=== PATIENT | female | born 1990 | race Caucasian/White ===

== ENCOUNTER 2022-04-27 09:51 | Emergency (ER) | payer OTHER, SELFPAY ==
[2022-04-27 10:27] VITALS: BP 134/93; PULSE 94; RESP 16; TEMP 36.9; O2SAT 100
--- NOTE | 2022-04-27 10:28 | ED.URI ---
HPI - URI/Sore Throat General Chief Complaint: Upper Respiratory Infection Stated Complaint: COUGH/COLD/CHEST PAIN/FEVER Time Seen by Provider: 04/27/22 10:34 Source: patient and RN notes reviewed Mode of arrival: ambulatory Limitations: no limitations History of Present Illness HPI Narrative: 21-year-old female presents concern for 1 week history of sinus congestion, drainage, pressure, cough. Reports her cough has turned productive. She reports fever, fatigue and malaise. She denies known sick contacts. Reports she took a COVID test at home that was negative. She denies shortness of breath. MD elicited complaint: cough, rhinorrhea and nasal congestion Related Data Home Medications Medication Instructions Recorded Confirmed alprazolam 0.25 mg tablet 0.25 mg PO DAILY 04/15/21 04/27/22 Allergies Allergy/AdvReac Type Severity Reaction Status Date / Time bupropion Allergy Unknown unknown Verified 04/27/22 10:26 Sulfa (Sulfonamide Allergy Unknown unknown Verified 04/27/22 10:26 Antibiotics) BUPROPION HCL Allergy Severe SEIZURE Uncoded 04/27/22 10:26 Review of Systems Review of Systems: CONSTITUTIONAL: Reports malaise and fever EYES: Denies visual changes, redness, or discharge. ENT: Reports rhinorrhea, congestion, sinus pain, otalgia CARDIOVASCULAR: Denies chest pain, palpitations, or edema. RESPIRATORY: Reports cough. Denies dyspnea. GASTROINTESTINAL: Denies abdominal pain, nausea, vomiting, diarrhea SKIN: Denies rash or itching. MUSCULOSKELETAL: Denies myalgia. NEUROLOGIC: Denies headache. All systems reviewed & are unremarkable except as noted in HPI and below [facility] Surgical History Surgical History (Updated 04/15/21 @ 10:37 by Dianna Sandra) History of appendectomy History of breast augmentation History of tubal ligation Family History Family History (Updated 04/15/21 @ 10:37 by Dianna Sandra) Father Hypertension Social History Social History Smoking status: Never smoker Alcohol intake: current Comments At time of signature, agree with nursing past medical, surgical, social and family history. There is no relevant family history pertinent to the presenting complaint Exam Narrative: GENERAL: Nontoxic appearing and in no acute distress. HEAD: Normocephalic EYES: PERRLA, conjunctivae clear ENT: Nares clear, turbinates edematous and erythematous, yellow discharge. Mucous membranes moist. TM pearly weeks with dull light reflex bilaterally; no tragal tenderness. Oropharynx not erythematous without lesions. Tonsils not enlarged and without exudate, no drooling, no hoarseness, no trismus, uvula midline. NECK: Supple. No lymphadenopathy CHEST: Clear to auscultation, breath sounds equal. No wheezing, rhonchi, rales, or stridor. No respiratory distress, speaks in full sentences. Wet cough noted HEART: Regular rate and rhythm. No murmur heard. SKIN: Warm, dry, no rash. NEURO: Alert and oriented x3. PSYCH: Normal mood and affect Course Course Emergency Course: Patient is aware of diagnosis, understands and agrees to treatment plan. Anticipatory guidance given. Patient agrees to follow-up as directed and is aware of reasons to seek care at the emergency department. Portions of this record may have been created with voice recognition software Level of Care: Express Care Visit Vital Signs Vital signs: Reviewed. MDM - URI/Sore Throat MDM Narrative Medical decision making narrative: Differential diagnosis considered: Glynn virus, strep pharyngitis, allergic rhinitis, upper respiratory tract infection, sinusitis, rhinosinusitis, nasopharyngitis. viral pharyngitis, otitis media, otitis externa, pneumonia, bronchitis, viral cough syndrome, viral syndrome, and influenza. Exam findings show no acute concerns or changes; patient is non-toxic appearing and is in no distress. Patient is appropriate for outpatient treatment and follow-up. Lab Data Attestation: I reviewed the patient's lab r
== END 2022-04-27 10:50 | disposition home or self-care (01) ==
PROVIDERS: Emergency Provider Nurse Practitioner; PCP Family Medicine
DX: J32.9 Chronic sinusitis, unspecified (principal); J40 Bronchitis, not specified as acute or chronic; F41.9 Anxiety disorder, unspecified
CPT/HCPCS: 99213; G0463

== ENCOUNTER 2022-07-08 13:57 | Emergency (ER) | payer OTHER, SELFPAY ==
[2022-07-08 14:50] VITALS: BP 154/87; PULSE 115; RESP 16; TEMP 37.3; O2SAT 100
--- NOTE | 2022-07-08 15:12 | ED.URI ---
HPI - URI/Sore Throat General Chief Complaint: Upper Respiratory Infection Stated Complaint: COUGH Time Seen by Provider: 07/08/22 15:12 Source: patient, RN notes reviewed and old records reviewed Mode of arrival: ambulatory Limitations: no limitations History of Present Illness HPI Narrative: 31-year-old female presents to the [facility] with complaints of generalized not feeling well since , developed Thursday. No treatment prior to arrival MD elicited complaint: cough Related Data Home Medications Medication Instructions Recorded Confirmed alprazolam 0.25 mg tablet 0.25 mg PO DAILY 04/15/21 07/08/22 Allergies Allergy/AdvReac Type Severity Reaction Status Date / Time bupropion Allergy Unknown unknown Verified 07/08/22 15:13 Sulfa (Sulfonamide Allergy Unknown unknown Verified 07/08/22 15:13 Antibiotics) BUPROPION HCL Allergy Severe SEIZURE Uncoded 07/08/22 15:13 Review of Systems Review of Systems: All systems reviewed & are unremarkable except as noted in HPI and below Constitutional: Constitutional: Reports no additional constitutional complaints, Denies chills and Denies fever(s) Eyes: Eyes: Reports no additional eye complaints ENT: Reports system reviewed and no additional complaints, except as documented Cardiovascular: Cardiovascular: Reports no additional cardiovascular complaints Respiratory: Respiratory: Reports as per HPI and Reports cough Gastrointestinal: Gastrointestinal: Reports no additional gastrointestinal complaints Musculoskeletal: Musculoskeletal: Reports no additional musculoskeletal complaints Integumentary/Breasts: Skin/Breast: Reports system reviewed and no additional complaints, except as docu Neurologic: Reports system reviewed and no additional complaints, except as documented Psychiatric: Psychiatric: Reports no additional psychiatric complaints Allergic/Immunologic: Allergic/Immunologic: Reports no additional allergic/immunologic complaints [facility] Surgical History Surgical History History of appendectomy History of breast augmentation History of tubal ligation Family History Family History Father Hypertension Social History Social History Smoking status: Never smoker Alcohol intake: current Comments At the time of my signature, I reviewed and agree with the nursing past medical, surgical, social, and family history. There is no relevant family history pertinent to the patient complaint. Exam Const: General: healthy appearing, comfortable, no acute distress, well developed, alert and well nourished Nutritional Appearance: well nourished Orientation/consciousness: patient oriented x3 Limitations: no limitations HENMT: Head: normal to inspection Ears: external ears normal, TM's normal bilaterally and EAC's normal Face/Nose/Sinus: Normal external nose present Face and sinus: normal facial exam Mouth: Yes Normal oral and palatal mucosa present, Yes lip normal and Yes moist mucous membranes Throat: posterior oropharynx normal and uvula midline Eyes: General: appearance normal, both eyes and all related structures Conjunctivae: conjunctivae normal Pupils: Equal, round and reactive pupils present Neck: Neck: normal visual inspection, full ROM, no lymphadenopathy and no meningeal signs Chest: Chest palpation & inspection: normal inspection of the chest Resp: Effort & Inspection: normal respiratory effort and no use of accessory muscles Auscultation: clear to auscultation bilaterally, no crackles, no rales, no rhonchi and no wheezes Cardio: Rate: regular rate Rhythm: regular rhythm Back/Spine/Pelvis: Cervical Spine: cervical ROM normal and No Cervical spine tenderness Thoracic/Lumbar Spine: thoracic and lumbar spine normal to inspection and thoraco-lumbar ROM normal Skin: General sk
== END 2022-07-08 15:24 | disposition home or self-care (01) ==
PROVIDERS: Emergency Provider Nurse Practitioner; PCP Family Medicine
DX: J10.1 Influenza due to other identified influenza virus with other respiratory manifestations (principal)
CPT/HCPCS: 87804; 99212; G0463

== ENCOUNTER 2024-10-21 07:50 | Outpatient (CLI) | payer OTHER, SELFPAY ==
--- NOTE | ~2024-10-21 | US_ITS ---
EXAMINATION: US pelvic complete DATE: 10/21/2024 INDICATION: Pelvic pain. TECHNIQUE: Multiple transabdominal and transvaginal sonographic images of the pelvis were obtained. COMPARISON: None. FINDINGS: TRANSABDOMINAL ULTRASOUND: The uterus measures 8.8 x 3.7 x 4.8 cm. There is no free fluid in the pelvis. TRANSVAGINAL ULTRASOUND: The endometrial complex measures 7 mm in thickness. The right ovary measures 3.6 x 2.4 x 2.6 cm. The left ovary measures 3.0 x 1.9 x 3.7 cm. There is normal vascular flow in the ovaries. IMPRESSION: 1. Normal pelvis. Reviewed, dictated and finalized at location A. STANT [employer]OTBALL COACH IMPRESSION: 1. Normal pelvis.
== END 2024-10-21 07:51 | disposition home or self-care (01) ==
PROVIDERS: PCP Nurse Practitioner Women's Health; Visit Provider Nurse Practitioner Women's Health
DX: R59.0 Localized enlarged lymph nodes (principal)
CPT/HCPCS: 76856

== ENCOUNTER 2025-06-27 09:29 | Outpatient (CLI) | payer OTHER, SELFPAY ==
--- NOTE | ~2025-06-27 | MMUS_ITS ---
EXAMINATION: MM diag nir implant BI w miguel a, US breast BI complete HISTORY: Breast pain TECHNIQUE: Additional 3-D tomosynthesis images of the breasts were performed and synthetic 2-D images were generated. CAD analysis was submitted and interpreted. High resolution bilateral complete breast ultrasound was performed. COMPARISON: None BREAST PARENCHYMAL COMPOSITION: Dense: The breasts are heterogeneously dense, which may obscure small masses FINDINGS: MAMMOGRAPHIC FINDINGS: There are no suspicious masses, calcifications or architectural distortion in either breast to suggest malignancy. ULTRASOUND: Complete US of all 4 quadrants of the breast/s and retroareolar region was reviewed. Normal heterogeneous echotexture without focal solid or cystic mass. IMPRESSION: 1. No evidence for malignancy in either breast. 2. Routine yearly screening mammogram and regular clinical breast examination are recommended. BI-RADS Category 1: Negative Reviewed, dictated and finalized at location B. E COLLECTION DRIVER IMPRESSION: 1. No evidence for malignancy in either breast. 2. Routine yearly screening mammogram and regular clinical breast examination a re recommended. BI-RADS Category 1: Negative
--- OUTSIDE RECORDS SUMMARY | 2025-06-27 09:53 | XMS_ITS | Clinical Summary ---
Author Organization [facility] Address [address] [place] [address] Phone Care Team Providers Care Manager Shift Name Role Phone Not Found, Stl Primary Care Provider Unavailabl e Social History Tobacco Use Types Packs/Day Years Used Date Smoking Tobacco: Never Assessed Comments Unknown Sex and Gender Information Value Date Recorded Sex Assigned at Not on file Legal Sex Female 10:11 AM CDT Gender Identity Not on file Sexual Orientation Not on file Plan of Treatment Health Maintenance Due Date Last Done Comments DTAP/TDAP/TD VACCINES (1 - Tdap) 2007 HEPATITIS B VACCINES (1 of 3 - 19+ 3-dose series) 07/17 HPV/Cotest (21-29) 2009 HPV VACCINES (1 - 3-dose SCDM series) 2015 CERVICAL CANCER SCREENING 2018 HPV/Cotest (30-65) 2018 PAP SMEAR 2018 INFLUENZA VACCINE (#1) 2025 Insurance BLUE ACCESS/TRUE BLUE PPO Care Teams Manager Shift Relationship Specialty Start Date End Date Not Found, Stl NO ADDRESS ON FILE PCP - General 11/23/15
--- OUTSIDE RECORDS SUMMARY | 2025-06-27 09:53 | XMS_ITS | Clinical Summary ---
Author Organization [facility] [address] Address [address] [place] [address] Care Team Providers Care Coding Compliance Auditor Name Role Phone Katie Zamora MD Primary Care Provider [phone] Katie Zamora MD Unavailable [phone] Allergies Active Allergy Reactions Criticality Noted Date Comments Sulfa (Sulfonamide Antibiotics) Unknown 01/2022 Bupropion Unknown 08/22/2021 Medications zolpidem (AMBIEN) 10 mg tablet take 1 tablet by oral route every day at bedtime 0 0 6 Active Additional Information Patient taking differently:10 mgNightly PRN, Reported on 08/22/2021 ALPRAZolam (XANAX) 0.5 mg tablet Take 0.5 mg by mouth 2 (two) times a day as needed 1 Active cyclobenzaprine (FLEXERIL) 5 mg tablet Take 5 mg by mouth daily 1 Active dicyclomine (BENTYL) 10 mg capsule TAKE 1 CAPSULE BY MOUTH FOUR TIMES DAILY NEEDED 1 Active UNABLE TO FIND Musely Spot Cream Erase NoC Active traMADoL (ULTRAM) 50 mg tablet Take 50 mg by mouth every 8 (eight) hours as needed 1 Active Active Problems Problem Noted Date Diagnosed Date Dizziness 08/22/2021 SOB (shortness of breath) 08/22/2021 Chest tightness 08/22/2021 Sinus tachycardia 08/22/2021 Surgical History Surgery Date Site/Laterality Comments APPENDECTOMY Appendectomy TUBAL LIGATION COMBINED AUGMENTATION MAMMAP LASTY AND ABDOMINOPLASTY Medical History Medical History Date Comments Hx Other Medical Tubal ligation 04-10-16; Comments: BEULAH 2016 - Palpitations Anxiety Painless rectal bleeding Depressive disorder Tension headache Family History Medical History Relation Name Comments Hypertension Father Gallbladder disease Mother Breast cancer Other 1 Family history of Cancer, breast; Hypertension Other 2 Family history of Hypertension; Stroke Other 3 Family history of Stroke; Relation Name Status Comments Father Alive Mother Alive Other 1 Other 2 Other 3 Social History Tobacco Use Types Packs/Day Years Used Date Smoking Tobacco: Never Smokeless Tobacco: Never Alcohol Use Standard Drinks/Week Comments No 0 (1 standard drink = 0.6 oz pur e alcohol) Comments Unknown Sex and Gender Information Value Date Recorded Sex Assigned at Not on file Legal Sex Female 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 Gender Identity Not on file Sexual Orientation Not on file Last Filed Vital Signs Vital Sign Reading Time Taken Comments Blood Pressure 132/70 08/22/2021 8:35 AM MANUFACTURING INDUSTRIAL ENGINEER Pulse 129 08/22/2021 8:35 AM MANUFACTURING INDUSTRIAL ENGINEER Temperature - - Respiratory Rate - - Oxygen Saturation 99% 08/22/2021 8:35 AM MANUFACTURING INDUSTRIAL ENGINEER Inhaled Oxygen Concentration - - Weight 53.3 kg (117 lb 8 oz) 08/22/2021 8:35 AM MANUFACTURING INDUSTRIAL ENGINEER Height 160 cm (5' 3) 08/22/2021 8:35 AM MANUFACTURING INDUSTRIAL ENGINEER Body Mass Index 20.81 08/22/2021 8:35 AM MANUFACTURING INDUSTRIAL ENGINEER Plan of Treatment Not on file Insurance [facility] [place] [id number] CHOICE PLUS [facility] CHOICE PLUS Care Teams Coding Compliance Auditor Relationship Specialty Start Date End Date Katie Zamora MD [address] [place] [address] [place] [address] PCP - General Family Medicine 08/19/21 Katie Zamora MD [address] [place] [address] [place] [address] Family Medicine 08/19/21
== END 2025-06-27 09:30 | disposition home or self-care (01) ==
LOC: CHSIMG 09:32
PROVIDERS: PCP Nurse Practitioner; Visit Provider Advanced Practice Midwife
DX: N64.4 Mastodynia (principal); N64.59 Other signs and symptoms in breast
CPT/HCPCS: 76641; 77062; 77066; G0279